=== PATIENT | female | born 1950 | race Caucasian/White ===

== ENCOUNTER → 2017-05-08 | Day surgery (SDC) | payer OTHER ==
[2017-03-22 11:44] VITALS: Ht 168.9 cm; Wt 88.6 kg
[~2017-05-08] VITALS: Ht 168.9 cm; Wt 88.6 kg
[~2017-05-08] MED LIST: 500ML BSS 0.3ML EPI 1:1000PF IRRIG ONE; ACETAMINOPHEN 325 MG TAB PO PRN; AMVISC PLUS 0.8ML SYRINGE INT OCU ONE; ATROPINE SULFATE 0.1 MG/ML 5ML SYR IV PRN; AcetaZOLAMIDE 250 MG TAB PO SCH; BETAXOLOL HCL 0.25% OP SUSP PER DROP CHARGE OPR SCH; BRIMONIDINE TART 0.2% OP SOLN PER DROP CHARGE ONE; BSS FLUSH ONE; CEPH-571 PO; CHOL20009 PO; COEN100C2 PO; CRS/10 PO; CYCLOPENTOLATE HCL 1% OP SOLN PER DROP CHARGE OPR SCH; ENDOCOAT 0.85ML SYRINGE INT OCU ONE; EpHEDrine SULFATE INJ 50 MG/ML AMP IV PRN; EpINEphrine INJ 1MG/ML AMP 1 MG/ML AMP ONE; KRIL1CAP3 PO; LACTATED RINGER'S 1000ML 500 ML IV SCH; LIDOCAINE 4% OP SOLN DROP CHARGE ONE; LIDOCAINE 4% OP SOLN DROP CHARGE OPR SCH; LIDOCAINE HCL 1% MPF 2 ML VIAL ONE; LORA-741 PO; LSN/10125 PO; MIDAZOLAM HCL 1 MG/ML 2ML VIAL ONE; MIX: 4ML BSS 1ML EPI 1:1000 PF INSTIL ONE; MOXIFLOXACIN OPH SOLN PER DROP CHARGE ONE; MOXIFLOXACIN OPH SOLN PER DROP CHARGE OPR SCH; OCUCOAT 1 ML SOLN IO ONE; PHENYLEPHRINE HCL 2.5% OP SOLN PER DROP CHARGE OPR SCH; POVIDONE-IODINE OP SOLN 30 ML BTL ONE; PRED1SUS OPR; PROPARACAINE 0.5% OP SOLN PER DROP CHARGE OPR SCH; SULF800T23 PO; TOBRAMYCIN/DEXAMETHASONE OPH OINT PER APPLN CHARGE ONE; TROPICAMIDE 1% OP SOLN PER DROP CHARGE OPR SCH; ZNT150 PO
--- NOTE | 2017-05-08 06:47 | History & Physical Bridge - SC ---
H&P Re-Evaluation Bridge Note: I have examined the patient, reviewed the History & Physical and in the interval since the performance of the History & Physical I have noted the following changes of clinical significance: No changes noted
[2017-05-08] MEDS: PHENYLEPHRINE HCL 2.5% OP SOLN PER DROP CHARGE OPR SCH ×2 (07:23→07:28)
[2017-05-08] MEDS: TROPICAMIDE 1% OP SOLN PER DROP CHARGE OPR SCH ×2 (07:24→07:29)
[2017-05-08] MEDS: CYCLOPENTOLATE HCL 1% OP SOLN PER DROP CHARGE OPR SCH ×2 (07:25→07:30)
[2017-05-08] MEDS: MOXIFLOXACIN OPH SOLN PER DROP CHARGE OPR SCH ×2 (07:26→07:36)
[2017-05-08 08:36] VITALS: TEMP 36.5
--- NOTE | 2017-05-08 08:37 | [facility] Post Operative Brief Note ---
Immediate Operative Summary Operative Date May 08, 2017. Pre-Operative Diagnosis Right eye cataract Post-Operative Diagnosis Same as preop Procedure(s) Performed Right Cataract Phacoemulsification With Intraocular Lens Implant; Symfony Lens Surgeon Dr. Isaacs Sql Ssrs Ssis Developer Surgeon(s) None Estimated Blood Loss 0 mL Findings Nuclear cataract Fluids (cc crystalloids) 300 ml Specimens None Drains none Anesthesia L/S Complication(s) None Disposition Recovery Room / PACU
--- NOTE | 2017-05-08 08:39 | [facility] Operative Report ---
Operative Report Date of Service May 08, 2017. Operative Report PREOPERATIVE DIAGNOSIS: Senile nuclear cataract right eye. POSTOPERATIVE DIAGNOSIS: Senile nuclear cataract right eye. PROCEDURE: Phacoemulsification of right cataract with posterior chamber lens implant, type Errol, model ZXR00, power + 21.00 Diopters. ANESTHESIA: Local standby. SURGEON: Dr. Isaacs. COMPLICATIONS: None. OPERATING TIME: 10 minutes. OPERATION AND FINDINGS: PROCEDURE: The right pupil was dilated. The anesthetic was administered using a topical technique. The right eye was prepped and draped. A speculum was placed. A clear corneal incision was formed. The chamber was filled with Amvisc Plus and endocoat. A paracentesis was placed. A capsulorrhexis was performed. The nucleus was hydrodissected. The lens was removed with phacoemulsification. Time was 2.98 seconds. The aspiration unit was used to remove the cortex. The capsule was filled with Amvisc Plus. The lens implant was folded and placed into the capsule. The incision was hydrated. The Amvisc was aspirated. The wound was secure. The chamber was deep. The pupil was round. Alphagan solution and TobraDex ointment and Zymar solution were placed. The speculum was removed. DISPOSITION: The patient was returned to the recovery room in stable condition I attest to the content of the Intraoperative Record and any orders documented therein. Any exceptions are noted below.
--- NOTE | 2017-05-08 08:41 | Discharge Instructions-SurgCtr ---
Discharge Instructions Date of Service May 08, 2017. Visit Reason for Visit: Cataract Right Eye Discharge Discharge Diagnosis / Problem: Pseudophakia right eye Discharge Goals Goal(s): Improve function Activity Recommendations Activity Limitations: per Instructions/Follow-up section Lifting Limitations: no more than 10 pounds Exercise/Sports Limitations: as tolerated May Resume Sexual Activity: when tolerated Shower/Bathe: tomorrow Driving or Machine Use: resume 1 day after discharge As noted Anesthesia . Post Anesthesia Instructions: If you have had General Anesthesia or IV Sedation: * Do not drive today. * Resume driving when surgeon permits. * Do not make important decisions or sign legal documents today. * Call surgeon for: 1. Temperature elevations greater than 101 degrees F. 2. Uncontrollable pain. 3. Excessive bleeding. 4. Persistent nausea and vomiting. 5. Medication intolerance (nausea, vomiting or rash). * For nausea and vomiting use only clear liquids such as: tea, soda, bouillon until nausea subsides, then gradually increase diet as tolerated. * If you have any concerns or questions, call your surgeon's office. If physician is unavailable and it is an emergency, call 911 or go to the nearest emergency room. . Instructions / Follow-Up Instructions / Follow-Up ACTIVITY RECOMMENDATIONS: * Light activities. * Mild irritation and blurred vision are common for the first few days. * You may walk outside, read, watch television. * Redness around the white part of the eye is common. MEDICATIONS: Resume previous medications unless instructed otherwise by your surgeon. * Take white Diamox (Acetazolamide) tablet at 1 pm today. Start all eye drops at 1 pm today: * Eye drops (today and tomorrow): Prednisone - one drop in operative eye every 3 hours while awake Ofloxacin - one drop in operative eye every 3 hours while awake SPECIAL CARE INSTRUCTIONS: * Tape plastic shield over eye to sleep at night. Call your doctor at with any concerns or problems. FOLLOW UP VISIT: Follow-up with Dr Isaacs at [place] office as scheduled. Diet Recommendations Home Diet: resume previous diet Procedures Procedures Performed: Right Cataract Phacoemulsification With Intraocular Lens Implant; Symfony Lens Pending Studies Studies pending at discharge: no Medical Emergencies . Who to Call and When: Medical Emergencies: If at any time you feel your situation is an emergency, please call 911 immediately. . Non-Emergent Contact Non-Emergency issues call your: Drying Unit Felting Machine Operator . . "Provider Documentation" section prepared by Ger Isaacs. .
--- NOTE | 2017-05-08 08:51 | Anesthesia Progress Nt - [facility] ---
Anesthesia Post Op Note Date & Time May 08, 2017 at 08:51 Vital Signs Pain Intensity: 0 Vital Signs Past 12 Hours Date Time Temp Pulse Resp B/P (MAP) Pulse Ox O2 Delivery O2 Flow Rate FiO2 05/08/17 08:36 36.5 71 16 118/71 (87) 99 Room Air 05/08/17 07:17 36.5 76 20 162/92 (115) 98 Room Air Notes Mental Status: alert / awake / arousable, participated in evaluation Pt Amnestic to Procedure: Yes Nausea / Vomiting: adequately controlled Pain: adequately controlled Airway Patency, RR, SpO2: stable & adequate BP & HR: stable & adequate Hydration State: stable & adequate Anesthetic Complications: no major complications apparent
[2017-05-08 08:52] VITALS: BP 108/67; PULSE 60; O2SAT 95
== END | disposition home or self-care (01) ==
LOC: X.SURG 06:46
PROVIDERS: ATTEND Specialist
DX: H25.11 Age-related nuclear cataract, right eye (principal); I10 Essential (primary) hypertension; E78.00 Pure hypercholesterolemia, unspecified; Z90.710 Acquired absence of both cervix and uterus; Z95.818 Presence of other cardiac implants and grafts; E66.9 Obesity, unspecified

== ENCOUNTER → 2017-05-22 | Day surgery (SDC) | payer OTHER ==
[2017-05-20 11:43] VITALS: Ht 168.9 cm; Wt 88.6 kg
[~2017-05-22] VITALS: Ht 168.9 cm; Wt 88.6 kg
[~2017-05-22] MED LIST changes: +BETAXOLOL HCL 0.25% OP SUSP PER DROP CHARGE OPL SCH; -BETAXOLOL HCL 0.25% OP SUSP PER DROP CHARGE OPR SCH; -CYCLOPENTOLATE HCL 1% OP SOLN PER DROP CHARGE OPR SCH; +LIDOCAINE 4% OP SOLN DROP CHARGE OPL SCH; -LIDOCAINE 4% OP SOLN DROP CHARGE OPR SCH; -MOXIFLOXACIN OPH SOLN PER DROP CHARGE OPR SCH; -PHENYLEPHRINE HCL 2.5% OP SOLN PER DROP CHARGE OPR SCH; +PROPARACAINE 0.5% OP SOLN PER DROP CHARGE OPL SCH; -PROPARACAINE 0.5% OP SOLN PER DROP CHARGE OPR SCH; -TROPICAMIDE 1% OP SOLN PER DROP CHARGE OPR SCH
[2017-05-22] MEDS: PHENYLEPHRINE HCL 2.5% OP SOLN PER DROP CHARGE OPL SCH ×2 (06:51→06:56)
[2017-05-22] MEDS: TROPICAMIDE 1% OP SOLN PER DROP CHARGE OPL SCH ×2 (06:52→06:57)
[2017-05-22] MEDS: CYCLOPENTOLATE HCL 1% OP SOLN PER DROP CHARGE OPL SCH ×2 (06:53→06:58)
[2017-05-22] MEDS: MOXIFLOXACIN OPH SOLN PER DROP CHARGE OPL SCH ×2 (06:54→07:04)
--- NOTE | 2017-05-22 07:53 | Discharge Instructions-SurgCtr ---
Discharge Instructions Date of Service May 22, 2017. Visit Reason for Visit: Cataract Left Eye Discharge Discharge Diagnosis / Problem: lens implant left eye Discharge Goals Goal(s): Improve function Activity Recommendations Activity Limitations: resume your previous activity Lifting Limitations: no more than 10 pounds Exercise/Sports Limitations: gradually increase as tolerated May Resume Sexual Activity: when tolerated Shower/Bathe: tomorrow Driving or Machine Use: resume 1 day after discharge Anesthesia . Post Anesthesia Instructions: If you have had General Anesthesia or IV Sedation: * Do not drive today. * Resume driving when surgeon permits. * Do not make important decisions or sign legal documents today. * Call surgeon for: 1. Temperature elevations greater than 101 degrees F. 2. Uncontrollable pain. 3. Excessive bleeding. 4. Persistent nausea and vomiting. 5. Medication intolerance (nausea, vomiting or rash). * For nausea and vomiting use only clear liquids such as: tea, soda, bouillon until nausea subsides, then gradually increase diet as tolerated. * If you have any concerns or questions, call your surgeon's office. If physician is unavailable and it is an emergency, call 911 or go to the nearest emergency room. . Instructions / Follow-Up Instructions / Follow-Up ACTIVITY RECOMMENDATIONS: * Light activities. * Mild irritation and blurred vision are common for the first few days. * You may walk outside, read, watch television. * Redness around the white part of the eye is common. MEDICATIONS: Resume previous medications unless instructed otherwise by your surgeon. * Take white Diamox (Acetazolamide) tablet at 1 pm today. Start all eye drops at 1 pm today: * Eye drops (today and tomorrow): Prednisone - one drop in operative eye every 3 hours while awake Ofloxacin - one drop in operative eye every 3 hours while awake SPECIAL CARE INSTRUCTIONS: * Tape plastic shield over eye to sleep at night. Call your doctor at with any concerns or problems. FOLLOW UP VISIT: Follow-up with Dr Isaacs at [place] office as scheduled. Diet Recommendations Home Diet: no limitations Procedures Procedures Performed: cataract extraction with lens implant Pending Studies Studies pending at discharge: no Medical Emergencies . Who to Call and When: Medical Emergencies: If at any time you feel your situation is an emergency, please call 911 immediately. . Non-Emergent Contact Non-Emergency issues call your: Control Systems Engineer Call Non-Emergent contact if: your pain is not controlled [phone] . . "Provider Documentation" section prepared by Ger Isaacs. .
--- NOTE | 2017-05-22 07:55 | [facility] Operative Report ---
Operative Report Date of Service May 22, 2017. Operative Report 1. PREOPERATIVE DIAGNOSIS: Senile nuclear cataract, left eye. 2. POSTOPERATIVE DIAGNOSIS: Senile nuclear cataract, left eye. 3. PROCEDURE: Phacoemulsification of left cataract with posterior chamber lens implant, type Technis, model ZXR00 Symfony, power +22.0 diopters. ANESTHESIA: Local standby. SURGEON: Dr. Isaacs. COMPLICATIONS: None. OPERATING TIME: 10 minutes. 4. OPERATION AND FINDINGS: DESCRIPTION OF PROCEDURE: The left pupil was dilated. The anesthetic was administered using a topical technique. The left eye was prepped and draped. A speculum was placed. A clear corneal incision was formed. The chamber was filled with Amvisc Plus and Endocoat. Epinephrine solution was used. A paracentesis was placed. A capsulorrhexis was performed. The nucleus was hydrodissected. The lens was removed with phacoemulsification. Time was 1.65 seconds. The aspiration unit was used to remove the cortex. The capsule was filled with Amvisc Plus. The lens implant was folded and placed into the capsule. Anastigmatic incision was placed across from the main incision. The incisions were hydrated. The Amvisc was aspirated. The wounds were secure. The chamber was deep. The pupil was round. Brimonidine, TobraDex ointment and Vigamox solution were placed. The speculum was removed. The patient was returned to the Recovery Room in stable condition. I attest to the content of the Intraoperative Record and any orders documented therein. Any exceptions are noted below. The scribe's documentation has been prepared in my presence, under my direction and personally reviewed by me in its entirety. I confirm that the note above accurately reflects all work, treatment, procedures, and medical decision making performed by me. I personally scribed for Ger Isaacs M.D. ([facility]) on 05/22/17 at 07:55. Electronically submitted by Patricia HARMON).
[2017-05-22 07:56] VITALS: TEMP 36.6
[2017-05-22 08:21] VITALS: BP 98/62; PULSE 61; O2SAT 97
--- NOTE | 2017-05-22 08:26 | Anesthesia Progress Nt - [facility] ---
Anesthesia Post Op Note Date & Time May 22, 2017 at 08:25 Vital Signs Pain Intensity: 0 Vital Signs Past 12 Hours Date Time Temp Pulse Resp B/P (MAP) Pulse Ox O2 Delivery O2 Flow Rate FiO2 05/22/17 08:21 61 16 98/62 (74) 97 Room Air 05/22/17 07:56 36.6 67 16 104/65 (78) 97 Room Air 05/22/17 06:39 36.9 79 16 144/85 (104) 97 Room Air Notes Mental Status: alert / awake / arousable, participated in evaluation Pt Amnestic to Procedure: Yes Nausea / Vomiting: adequately controlled Pain: adequately controlled Airway Patency, RR, SpO2: stable & adequate BP & HR: stable & adequate Hydration State: stable & adequate Anesthetic Complications: no major complications apparent
== END | disposition home or self-care (01) ==
LOC: X.SURG 06:25
PROVIDERS: ATTEND Specialist
DX: H25.12 Age-related nuclear cataract, left eye (principal); I10 Essential (primary) hypertension; E78.00 Pure hypercholesterolemia, unspecified; F41.9 Anxiety disorder, unspecified; F32.9 Major depressive disorder, single episode, unspecified; E78.5 Hyperlipidemia, unspecified; H40.9 Unspecified glaucoma

== ENCOUNTER → 2017-07-19 | Outpatient (CLI) | payer OTHER ==
[~2017-07-19] MED LIST changes: -500ML BSS 0.3ML EPI 1:1000PF IRRIG ONE; -ACETAMINOPHEN 325 MG TAB PO PRN; -AMVISC PLUS 0.8ML SYRINGE INT OCU ONE; -ATROPINE SULFATE 0.1 MG/ML 5ML SYR IV PRN; -AcetaZOLAMIDE 250 MG TAB PO SCH; -BETAXOLOL HCL 0.25% OP SUSP PER DROP CHARGE OPL SCH; -BRIMONIDINE TART 0.2% OP SOLN PER DROP CHARGE ONE; -BSS FLUSH ONE; -CEPH-571 PO; -ENDOCOAT 0.85ML SYRINGE INT OCU ONE; -EpHEDrine SULFATE INJ 50 MG/ML AMP IV PRN; -EpINEphrine INJ 1MG/ML AMP 1 MG/ML AMP ONE; -LACTATED RINGER'S 1000ML 500 ML IV SCH; -LIDOCAINE 4% OP SOLN DROP CHARGE ONE; -LIDOCAINE 4% OP SOLN DROP CHARGE OPL SCH; -LIDOCAINE HCL 1% MPF 2 ML VIAL ONE; -MIDAZOLAM HCL 1 MG/ML 2ML VIAL ONE; -MIX: 4ML BSS 1ML EPI 1:1000 PF INSTIL ONE; -MOXIFLOXACIN OPH SOLN PER DROP CHARGE ONE; -OCUCOAT 1 ML SOLN IO ONE; -POVIDONE-IODINE OP SOLN 30 ML BTL ONE; -PROPARACAINE 0.5% OP SOLN PER DROP CHARGE OPL SCH; -TOBRAMYCIN/DEXAMETHASONE OPH OINT PER APPLN CHARGE ONE; -ZNT150 PO
== END | disposition home or self-care (01) ==
LOC: C.LABSPEC 17:23
PROVIDERS: ATTEND Physician Assistant
DX: N89.8 Other specified noninflammatory disorders of vagina (principal)

== ENCOUNTER 2017-07-24 07:48 | Observation (INO) | payer OTHER ==
[~2017-07-24] VITALS: Ht 167.6 cm; Wt 84.7 kg
[~2017-07-24 07:48] MED LIST changes: -SULF800T23 PO
[2017-07-24] MEDS ORDERED: SULF800T23 PO (08:07)
[2017-07-24] MEDS ORDERED: SODIUM CHLORIDE 0.9% 1000ML 500 ML IV STA (08:16)
[2017-07-24] MEDS ORDERED: NITROGLYCERIN OINT 2% 1GM PACKET EXT STA (08:16)
--- NOTE | 2017-07-24 08:26 | EMERGENCY ROOM VISIT NOTE ---
History Report prepared by Gillian: Elizabeth Carrasquillo Under the Supervision of: Dr. Zen Torres M.D. First contact with patient: 08:10 Chief Complaint: CARDIAC ASSESSMENT Stated Complaint: BURNING ALL OVER IN CHEST Nursing Triage Summary: pt reports she started having chest gurgling last night after taking bactrim for staff infection in groin area has been having pain in area since february .recommended to go for gyne visit by pain management. has feeling of burning soap. wanted pt to take tetracycline but med cost too much changed to bactrim. denies any n/v/sob. pt has testing done on saturday called yesterday with results. History of Present Illness The patient is a 66 year old female who presents to the Emergency Room with complaints of chest pain that has slightly resolved that began around 0200 this morning. She currently rates her discomfort as a 3/10 in severity, but notes that last evening it was up to an 8/10 in severity. The patient states that around 0200 she was woken out of sleep with a burning pain to her chest. She states that she felt fine going to bed last evening. The patient reports a history of heart burn, but states that her pain today was more severe. She denies any pain radiating into her jaw, back, neck or arm. The patient states that she felt warm when the pain began, but denies any diaphoresis, shortness of breath, or nausea. She states that she has been feeling fatigued recently. The patient states that she took 81 mg of aspirin this morning. The patient denies any history of heart disease. She does report feeling out of breath with quick walking. The patient does report that over the summer she developed pain in her sacroiliac joint. She states that she followed with a doctor who then referred her to pain management. The patient states that she had two shots at pain management and was then referred to the security developer due to pain she developed in her vaginal area. She states that she had a CT performed of her abdomen and pelvis--no concerning findings. The patient states that she had a culture taken from her vagina and states that she was found to have a Staph infection. She states that she was prescribed Bactrim yesterday, but states that she only took 1 yesterday. The patient states that she has had slight relief of her vaginal pain, but still reports vaginal pain today. Source of History: patient Onset: 0200 this morning Position: chest Symptom Intensity: 310 Quality: burning Timing: resolved (resolving) Associated Symptoms: No diaphoresis, No SOB, No nausea Review of Systems See HPI for pertinent positives & negatives. A total of 10 systems reviewed and were otherwise negative. Past Medical & Surgical Medical Problems: (1) Anxiety (2) Hyperlipidemia (3) Hypertension (4) Sacroiliac dysfunction Surgical Problems: (1) History of bowel resection (2) Previous back surgery Family History Cancer Hypertension Social History Smoking Status: Never Smoker Smokeless Tobacco Use: No Alcohol Use: none Marital Status: Housing Status: lives with significant other Occupation Status: employed Current/Historical Medications Scheduled Cholecalciferol (Vitamin D), 1 TAB PO QAM Coenzyme Q10 (Ubidecarenone) (Coenzyme Q-10), 1 CAP PO HS Hctz/Lisinopril (Lisinopril/Hctz 10/12.5 Mg), 1 TAB PO QAM Krill Oil (Krill Oil), 1 CAP PO QAM Rosuvastatin Calcium (Crestor), 10 MG PO HS Sulfa/Trimethoprim (Bactrim Ds 800MG/160MG), 1 TAB PO BID Scheduled PRN Lorazepam (Ativan), 0.25-0.5 TAB PO TID PRN for Anxiety Allergies Coded Allergies: NO KNOWN DRUG ALLERGIES (Verified Allergy, Unknown, ., 07/24/17) Adhesives (Verified Adverse Reaction, Unknown, REDNESS AND INFLAMMATION, 07/24/17) Physical Exam Vital Signs Date Time Temp Pulse Resp B/P (MAP) Pulse Ox O2 Delivery O2 Flow Rate FiO2 07/24/17 09:45 77 20 164/85 96 Room Air 07/24/17 08:05 90 07/24/17 08:01 97 Room Air 07/24/17 07:57 37.0 97 20 198/98 100 Room Air Physical Exam GENERAL: Patient is in no acute distress. HEENT: No acute trauma, normocephalic atraumatic, mucous membranes moist, no nasal congestion, no scleral icterus. NECK: No stridor, no adenopathy, no meningismus, trachea is midline. CHEST: Mildly tender over mid-left sternum. LUNGS: Clear to auscultation bilaterally, no wheeze, no rhonchi, breath sounds equal. HEART: Without murmurs gallops or rubs, regular rate and rhythm. ABDOMEN: Soft, nontender, bowel sounds positive, no hernias, no peritonitis. EXTREMITIES: No cyanosis or edema, full range of motion of all the joints without pain or difficulty, no signs for acute trauma. NEUROLOGIC: Oriented x 3, no acute motor or sensory deficits, no focal weakness. SKIN: No rash, no jaundice, no diaphoresis. Medical Decision & Procedures ER Provider Diagnostic Interpretation: X-ray results as stated below per interpretation by me and the radiologist: CHEST ONE VIEW PORTABLE CLINICAL HISTORY: Chest pain. Burning sensation in chest. COMPARISON STUDY: No previous studies for comparison. FINDINGS: Lung volumes are normal. No pneumothorax or pleural effusion is present. Pulmonary vascularity is normal. Cardiomediastinal silhouette is normal. There is no consolidation. IMPRESSION: No acute cardiopulmonary findings. Electronically signed by: Joseph Wilkins M.D. 07/24/2017 8:35 AM Dictated Date/Time: 07/24/2017 8:31 AM Laboratory Results 07/24/17 08:11 07/24/17 08:11 Test 07/24/17 08:11 07/24/17 08:40 Red Blood Count 4.94 M/uL (4.2-5.4) Mean Corpuscular Volume 88.9 fL (80-100) Mean Corpuscular Hemoglobin 30.8 pg (25-34) Mean Corpuscular Hemoglobin Concent 34.6 g/dl (32-36) RDW Standard Deviation 43.2 fL (36.4-46.3) RDW Coefficient of Variation 13.3 % (11.5-14.5) Mean Platelet Volume 9.6 fL (7.4-10.4) Prothrombin Time 10.8 SECONDS (9.0-12.0) Prothromb Time International Ratio 1.0 (0.9-1.1) Activated Partial Thromboplast Time 28.5 SECONDS (21.0-31.0) Partial Thromboplastin Ratio 1.1 Anion Gap 9.0 mmol/L (3-11) Est Creatinine Clear Calc Drug Dose 54.6 ml/min Estimated GFR () 59.7 Estimated GFR (Non- 51.5 BUN/Creatinine Ratio 14.4 (10-20) Calcium Level 9.4 mg/dl (8.5-10.1) Total Bilirubin 0.7 mg/dl (0.2-1) Aspartate Amino Transf (AST/SGOT) 20 U/L (15-37) Alanine Aminotransferase (ALT/SGPT) 26 U/L (12-78) Alkaline Phosphatase 41 U/L (45-117) Total Creatine Kinase 186 U/L (26-192) Creatine Kinase MB 3.0 ng/ml (0.5-3.6) Creatine Kinase MB Ratio 1.6 (0-3.0) Total Protein 7.4 gm/dl (6.4-8.2) Albumin 3.9 gm/dl (3.4-5.0) Globulin 3.5 gm/dl (2.5-4.0) Albumin/Globulin Ratio 1.1 (0.9-2) Lipase 131 U/L (73-393) Urine Color YELLOW Urine Appearance CLEAR (CLEAR) Urine pH 5.5 (4.5-7.5) Urine Specific [place] 1.020 (1.000-1.030) Urine Protein NEG (NEG) Urine Glucose (UA) NEG (NEG) Urine Ketones NEG (NEG) Urine Occult Blood NEG (NEG) Urine Nitrite NEG (NEG) Urine Bilirubin NEG (NEG) Urine Urobilinogen NEG (NEG) Urine Leukocyte Esterase NEG (NEG) Laboratory results reviewed by me. Medications Administered Medications (Trade) Dose Ordered Sig/Nury Route Start Time Stop Time Status Last Admin Dose Admin Sodium Chloride 500 ml @ 999 mls/hr Q31M STAT IV 07/24/17 08:16 07/24/17 08:46 DC 07/24/17 08:29 999 MLS/HR Nitroglycerin (Nitroglycerin 2% Oint) 1 inch NOW STAT EXT 07/24/17 08:16 07/24/17 08:21 DC 07/24/17 08:29 1 INCH Ceftriaxone Sodium (Rocephin Inj) 1 gm NOW STAT IV 07/24/17 09:27 07/24/17 09:28 DC 07/24/17 09:46 1 GM ECG Indication: chest pain Rate (beats per minute): 89 Rhythm: normal sinus Findings: no acute ischemic change, no ectopy ED Course 0815: The patient was evaluated in room A3. A complete history and physical exam was performed. 0816: Ordered Nitroglycerin 1 inch EXT, Sodium Chloride 500 ml @ 999 mls/hr IV. 0925: I reevaluated the patient and she is resting comfortably. I discussed the exam findings with her and I discussed the treatment plan. She verbalized complete understanding and agreement. She will be evaluated for further treatment. 926: Ordered Rocephin Inj 1 gm IV. 933: I discussed the patients case with BLANCA Bird. He is going to evaluate the patient for further treatment. Medical Decision The patient is a 66 year old female who presents to the ED with complaints of chest pain. Differential diagnoses considered include cardiac ischemia, angina , AK, reflux, gallbladder disease, pancreatitis, medication reaction, electrolyte imbalance, anemia. There is no leukocytosis or concerning anemia. No significant electrolyte abnormalities, kidney failure, hepatitis or pancreatitis. Chest x-ray does not show mediastinal widening, pneumonia or pneumothorax. EKG shows a normal sinus rhythm, no acute ischemia. Cardiac enzyme testing times one does not suggest acute cardiac injury. Urinalysis does not show infection. There is no coagulopathy. The patient has had improvement of her pain spontaneously. She was given nitroglycerin paste, she feels even better since the nitro application. She received IV saline. No additional aspirin was given as she had taken aspirin prior to arrival. She was given IV ceftriaxone to cover for the potential staph infection noted on her vaginal culture. Given the chest pain, I do think further care in the hospital is warranted. A cardiac workup is needed. I talked to the patient and the child support case officer. The on- call hospitalist was consulted. Medication Reconcilliation Current Medication List: was personally reviewed by me Blood Pressure Screening Patient's blood pressure: Elevated blood pressure Blood pressure disposition: Referred to PCP Consults Time Called: [phone] Consulting Physician: BLANCA Bird Returned Call: [phone] I discussed the patients case with BLANCA Bird. He is going to evaluate the patient for further treatment. Impression Primary Impression: Precordial chest pain Scribe Attestation The scribe's documentation has been prepared under my direction and personally reviewed by me in its entirety. I confirm that the note above accurately reflects all work, treatment, procedures, and medical decision making performed by me. Departure Information Dispostion Being Evaluated By Hospitalist Referrals Cara Bynum (PCP)
--- NOTE | 2017-07-24 08:36 | DIAGNOSTIC IMAGING REPORT ---
CHEST ONE VIEW PORTABLE CLINICAL HISTORY: Chest pain. Burning sensation in chest. COMPARISON STUDY: No previous studies for comparison. FINDINGS: Lung volumes are normal. No pneumothorax or pleural effusion is present. Pulmonary vascularity is normal. Cardiomediastinal silhouette is normal. There is no consolidation. IMPRESSION: No acute cardiopulmonary findings. Electronically signed by: Joseph Wilkins M.D. 07/24/2017 8:35 AM Dictated Date/Time: 07/24/2017 8:31 AM
[2017-07-24 08:48] LABS: HEMATOCRIT 43.9 % (37-47); MEAN CELL VOLUME 88.9 fL (80-100); MEAN CORPUSCULAR HEMOGLOBIN 30.8 pg (25-34); MEAN CORPUSCULAR HGB CONC 34.6 g/dl (32-36); MEAN PLATELET VOLUME 9.6 fL (7.4-10.4); PLATELET COUNT 227 K/uL (130-400); RED BLOOD COUNT 4.94 M/uL (4.2-5.4); WHITE BLOOD COUNT 8.88 K/uL (4.8-10.8)
[2017-07-24 08:53] LABS: PARTIAL THROMBOPLASTIN RATIO 1.1; PROTHROMBIN TIME (PATIENT) 10.8 SECONDS (9.0-12.0)
[2017-07-24 08:57] LABS: ALT/SGPT 26 U/L (12-78); AST/SGOT 20 U/L (15-37); BLOOD UREA NITROGEN 16 mg/dl (7-18); BUN/CREATININE RATIO 14.4 (10-20); CALCIUM 9.4 mg/dl (8.5-10.1); CARBON DIOXIDE 23 mmol/L (21-32); CHLORIDE 104 mmol/L (98-107); GLUCOSE 106 mg/dl (70-99); POTASSIUM 3.9 mmol/L (3.5-5.1); SODIUM 136 mmol/L (136-145)
[2017-07-24 09:01] LABS: MANUAL MICROSCOPIC REQUIRED? NO; REVIEW REQ? NO; URINE APPEARANCE CLEAR (CLEAR); URINE BILIRUBIN NEG (NEG); URINE COLOR YELLOW; URINE NITRITE NEG (NEG); URINE PH 5.5 (4.5-7.5); UROBILINOGEN NEG (NEG)
[2017-07-24 09:02] LABS: ALB/GLOB RATIO 1.1 (0.9-2); ALKALINE PHOSPHATASE 41 U/L (45-117); CKMB/CK RATIO 1.6 (0-3.0)
[2017-07-24] MEDS ORDERED: CEFTRIAXONE SOD INJ 1 GM ADDVIAL IV STA (09:27)
[2017-07-24] MEDS ORDERED: NITROGLYCERIN 0.4 MG SL PER TAB CHARGE SL PRN (10:15)
[2017-07-24] MEDS ORDERED: ACETAMINOPHEN 325 MG TAB PO PRN (10:15)
[2017-07-24] MEDS ORDERED: LORAZEPAM 0.5 MG TAB PO PRN (10:15)
[2017-07-24 10:25] VITALS: O2SAT 96; Ht 167.6 cm; Wt 84.7 kg
--- NOTE | 2017-07-24 10:54 | History and Physical ---
History & Physical Date & Time of Service: Jul 24, 2017 at 10:21 Chief Complaint: Burning All Over In Chest Primary Care Physician: Cara Bynum History of Present Illness Source: patient Patient is a 66-year-old female with a significant past medical history of hypertension, hyperlipidemia, and anxiety who presented to the emergency Department this morning complaining of LEFT-sided chest pain that awoke her from sleep at approximately 2 AM. She describes the initial pain as "burning" and constant without radiation. Her pain was rated an 8/10 at the most intense. In route to the emergency department, she reports that her symptoms did "let up" slightly. She received topical nitroglycerin upon arrival and approximately 15 minutes later the patient reports complete resolve of symptoms. Her EKG was found be unremarkable. Initial troponin was negative. Patient resting comfortably at this time and not complaining of pain rating her discomfort a 0/10. The patient does report a history of hypertension for which she is treated with lisinopril for the past several years. In addition, she is taking 10 mg Crestor for high cholesterol. She does report a history of a cardiac catheterization that was performed at [facility] approximately 10 years ago which was felt to be unremarkable. There was never any other intervention. She has not had subsequent stress tests or echocardiograms performed since. She does admit to having yearly EKGs which have been felt to be unremarkable for the last several years. The patient has not experienced similar chest pain in the recent past. She denies any exertional chest pain symptoms. She does report some discomfort of the pain with movement. She denies any shortness of breath, cough or nausea, or radiation to the jaw or arm. She denies any dyspepsia, but she does report "gurgling" in her stomach as the pain started. After the pain started, she does admit to a tingling sensation to the bilateral upper extremities as well as lower extremities. She denies any slurred speech, facial droop, unilateral weakness/numbness, or headaches. Most recently, the patient is been treated for sacroiliitis to the LEFT-sided hip. She has dealt with pain for the entire summer. She was seen at her prior surgeon who had performed a lumbar laminectomy at L1 through 4 2000. He sent her to pain management. She had 2 subsequent injections which provided minimal relief of symptoms. During these episodes, the patient had continued complaints of pain in the vaginal area. 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 She had a pelvic exam performed which cultures tested positive for strep. She was initially provided a prescription for azithromycin , but was unable to purchase the medication. Instead, the patient started Bactrim last night. She does not remember having this medication in the past. She took the pill at approximately 6 PM without issue. She does feel as though her mother may have had an allergy to Bactrim. Patient reports a family history significant for maternal CVA at 90 years old. Her father does have a long-standing history of hypertension. Patient denies a smoking history. She socially drinks. She lives at home with her . Past Medical/Surgical History Hypertension Hyperlipidemia Anxiety Sacroiliitis History of bowel resection in 2006 secondary to abscess (unknown larger/small intestine) L1-4 laminectomy with discectomy in 2000. Hysterectomy Family History Cancer Hypertension Social History Smoking Status: Never Smoker Smokeless Tobacco Use: No Alcohol Use: socially Drug Use: none Marital Status: Housing status: lives with family Occupational Status: employed, retired Immunizations History of Influenza Vaccine: Unknown History of Tetanus Vaccine?: Unknown History of Pneumococcal: Unknown History of Hepatitis B Vaccine: Unknown Multi-Drug Resistant Organisms History of MDRO: No Allergies Coded Allergies: NO KNOWN DRUG ALLERGIES (Verified Allergy, Unknown, ., 07/24/17) Adhesives (Verified Adverse Reaction, Unknown, REDNESS AND INFLAMMATION, 07/24/17) Home Medications Scheduled Cholecalciferol (Vitamin D), 1 TAB PO QAM Coenzyme Q10 (Ubidecarenone) (Coenzyme Q-10), 1 CAP PO HS Hctz/Lisinopril (Lisinopril/Hctz 10/12.5 Mg), 1 TAB PO QAM Krill Oil (Krill Oil), 1 CAP PO QAM Rosuvastatin Calcium (Crestor), 10 MG PO HS Sulfa/Trimethoprim (Bactrim Ds 800MG/160MG), 1 TAB PO BID Scheduled PRN Lorazepam (Ativan), 0.25-0.5 TAB PO TID PRN for Anxiety Review of Systems A complete 10-point Review of Systems was discussed with the patient, with pertinent positives and negatives listed in the History of Present Illness. All remaining Review of Systems questions can be considered negative unless otherwise specified. Physical Exam Vital Signs Date Time Temp Pulse Resp B/P (MAP) Pulse Ox O2 Delivery O2 Flow Rate FiO2 07/24/17 09:45 77 20 164/85 96 Room Air 07/24/17 08:05 90 07/24/17 08:01 97 Room Air 07/24/17 07:57 37.0 97 20 198/98 100 Room Air VITAL SIGNS - Vital signs and nursing notes were reviewed. GENERAL - 66-year-old female appearing her stated age who is in no acute distress. Communicates well with provider and answers questions appropriately. HEAD - NC/AT. EYES - PERRL with EOMI bilaterally. Sclera anicteric. Palpebral conjunctiva pink and moist with no injection noted. EARS - No deformities of external structures noted on gross examination bilaterally. No pain elicited with palpation of the tragus bilaterally. External auditory canals without discharge or otorrhea. Tympanic membranes pearly schroeder without retraction or bulging. NOSE - Midline and without cyanosis. No epistaxis or purulent drainage noted. Septum midline without deviation or septal hematoma noted. MOUTH/OROPHARYNX - Without perioral cyanosis. Buccal mucosa pink and moist and without leukoplakia. Tongue midline with equal elevation of palate bilaterally. No tonsillar hypertrophy, erythema, or exudates noted. NECK - Neck with FROM. Supple to palpation. Normal vesicular breath sounds CTA B /L. No wheezes, rales, or rhonchi appreciated. CARDIAC - RRR with S1/S2. No murmur, rubs, or gallops appreciated. Mild reproducible tenderness to palpation appreciated over the LEFT sided anterior chest wall. ABDOMEN - Abdominal contour flat and without pulsations or visible masses. BS normoactive all four quadrants. No tenderness, palpable masses, hepatosplenomegaly, or ascites noted. EXTREMITIES - No clubbing or peripheral cyanosis. No pretibial edema present. +3 /5 radial and dorsalis pedis pulses palpated throughout. +5/5 strength noted in UE/LE bilaterally. NEUROLOGIC - Cranial nerves II through XII grossly intact. Sensory intact to light touch throughout. PSYCH - A&Ox3 and cooperates fully with examiner. Pt is very pleasant and interacts well with examiner. Diagnostics Laboratory Results Results Past 24 Hours Test 07/24/17 08:11 07/24/17 08:40 Range/Units White Blood Count 8.88 4.8-10.8 K/uL Red Blood Count 4.94 4.2-5.4 M/uL Hemoglobin 15.2 12.0-16.0 g/dL Hematocrit 43.9 37-47 % Mean Corpuscular Volume 88.9 80-100 fL Mean Corpuscular Hemoglobin 30.8 25-34 pg Mean Corpuscular Hemoglobin Concent 34.6 32-36 g/dl RDW Standard Deviation 43.2 36.4-46.3 fL RDW Coefficient of Variation 13.3 11.5-14.5 % Platelet Count 227 130-400 K/uL Mean Platelet Volume 9.6 7.4-10.4 fL Prothrombin Time 10.8 9.0-12.0 SECONDS Prothromb Time International Ratio 1.0 0.9-1.1 Activated Partial Thromboplast Time 28.5 21.0-31.0 SECONDS Partial Thromboplastin Ratio 1.1 Sodium Level 136 136-145 mmol/L Potassium Level 3.9 3.5-5.1 mmol/L Chloride Level 104 98-107 mmol/L Carbon Dioxide Level 23 21-32 mmol/L Anion Gap 9.0 3-11 mmol/L Blood Urea Nitrogen 16 7-18 mg/dl Creatinine 1.10 0.60-1.20 mg/dl Est Creatinine Clear Calc Drug Dose 54.6 ml/min Estimated GFR () 59.7 Estimated GFR (Non- 51.5 BUN/Creatinine Ratio 14.4 10-20 Random Glucose 106 70-99 mg/dl Calcium Level 9.4 8.5-10.1 mg/dl Total Bilirubin 0.7 0.2-1 mg/dl Aspartate Amino Transf (AST/SGOT) 20 15-37 U/L Alanine Aminotransferase (ALT/SGPT) 26 12-78 U/L Alkaline Phosphatase 41 45-117 U/L Total Creatine Kinase 186 26-192 U/L Creatine Kinase MB 3.0 0.5-3.6 ng/ml Creatine Kinase MB Ratio 1.6 0-3.0 Troponin I < 0.015 0-0.045 ng/ml Total Protein 7.4 6.4-8.2 gm/dl Albumin 3.9 3.4-5.0 gm/dl Globulin 3.5 2.5-4.0 gm/dl Albumin/Globulin Ratio 1.1 0.9-2 Lipase 131 73-393 U/L Urine Color YELLOW Urine Appearance CLEAR CLEAR Urine pH 5.5 4.5-7.5 Urine Specific Gilby 1.020 1.000-1.030 Urine Protein NEG NEG Urine Glucose (UA) NEG NEG Urine Ketones NEG NEG Urine Occult Blood NEG NEG Urine Nitrite NEG NEG Urine Bilirubin NEG NEG Urine Urobilinogen NEG NEG Urine Leukocyte Esterase NEG NEG Diagnostic Radiology Radiological imaging and reports were reviewed by myself. Radiologist's Interpretation as follows: CHEST ONE VIEW PORTABLE CLINICAL HISTORY: Chest pain. Burning sensation in chest. COMPARISON STUDY: No previous studies for comparison. FINDINGS: Lung volumes are normal. No pneumothorax or pleural effusion is present. Pulmonary vascularity is normal. Cardiomediastinal silhouette is normal. There is no consolidation. IMPRESSION: No acute cardiopulmonary findings. EKG Vent. rate 89 BPM OK interval 130 ms QRS duration 92 ms QT/QTc 370/450 ms P-R-T axes 36 42 56 Normal sinus rhythm Normal ECG No previous ECGs available Impression Assessment and Plan (1) Hyperlipidemia (2) Anxiety (3) Sacroiliac dysfunction (4) Vaginal infection (5) Precordial chest pain (6) Hypertension 66-year-old female with abrupt onset of LEFT-sided chest discomfort. Resolved with topical nitroglycerin in the emergency department. History of hypertension , hyperlipidemia, and prior cath approximate 10 years ago. Has had no further cardiac evaluation. Will be admitted to telemetry for observation status for chest pain rule out. PRECORDIAL CHEST PAIN: * Atypical with reproducible factor to the LEFT-sided anterior chest wall. Suspect a component of anxiety as well with reported carpopedal spasm after initial episode of chest pain. * Will trend troponins every 8 hours. * Will obtain a stress echocardiogram after serial troponins. * Monitor on telemetry. * EKGs with chest pain. * Daily EKG. HYPERTENSION: * Currently on lisinopril - continue home dose at this point. * Will monitor serial blood pressures while admitted. * Additional antihypertensives if necessary. HYPERLIPIDEMIA: * Continue current home Crestor dose. * Will check fasting Lipid Panel tomorrow AM. * Adjustments as needed. ANXIETY: * Ativan PRN anxiety. SACROILIAC DYSFUNCTION: * Tylenol/Toradol for complaints of pain. * Currently receiving injections per outside facility pain management. VAGINAL INFECTION (STAPH): * Will treat with daily Rocephin dose. * Hold Bactrim in the setting of chest pain symptoms after Bactrim use with family history (mother) of Bactrim intolerance. DVT PROPHYLAXIS: * Lovenox 40 mg sq daily. * SCDs. * Ambulation as tolerated. Level of Care Telemetry Advanced Directives Existing Advance Directive: No Resuscitation Status FULL RESUSCITATION VTE Prophylaxis VTE Risk Assessment Done? Y/N: Yes Risk Level: Low Given or contraindicated: Enoxaparin (Lovenox)SQ Social Service Consult None Apply
[2017-07-24] MEDS ORDERED: KETOROLAC TROMETHAMINE 15 MG/ML VIAL IV. PRN (11:00)
[2017-07-24] MEDS ORDERED: IV FLUIDS COMPLETED PRN (11:15)
[2017-07-24 11:30] VITALS: BP 162/80; PULSE 84; TEMP 36.7; O2SAT 99
[2017-07-24 15:41] VITALS: BP 145/82; PULSE 71; TEMP 36.8; O2SAT 97
[2017-07-24] MEDS: RANITIDINE HCL 150 MG TAB PO SCH (20:30)
[2017-07-24] MEDS ORDERED: ROSUVASTATIN CALCIUM 10 MG TAB PO SCH (21:00)
[2017-07-24] MEDS ORDERED: ENOXAPARIN 40 MG/0.4 ML SYR SC SCH (21:00)
[2017-07-24 21:12] VITALS: BP 136/77; PULSE 71; TEMP 36.7; O2SAT 97
[2017-07-25] VITALS (7 sets, daily range): BP systolic 119–145; BP diastolic 72–84; PULSE 65–85; TEMP 36.5–36.8; O2SAT 91–99
[2017-07-25 06:09] LABS: BASO % 0.4 %; BASO ABS # 0.03 K/uL (0-0.2); COMPLETE YES; EOS % 3.4 %; HEMATOCRIT 45.1 % (37-47); IG% 0.1 %; LYMPH % 16.3 %; LYMPH ABS # 1.11 K/uL (1.2-3.4); MEAN CELL VOLUME 90.6 fL (80-100); MEAN CORPUSCULAR HEMOGLOBIN 28.9 pg (25-34); MEAN CORPUSCULAR HGB CONC 31.9 g/dl (32-36); MEAN PLATELET VOLUME 9.3 fL (7.4-10.4); MONO % 9.7 %; NEUT % 70.1 %; PLATELET COUNT 206 K/uL (130-400); RED BLOOD COUNT 4.98 M/uL (4.2-5.4); WHITE BLOOD COUNT 6.81 K/uL (4.8-10.8)
[2017-07-25 06:39] LABS: CALCIUM 8.7 mg/dl (8.5-10.1); CREATININE 0.91 mg/dl (0.60-1.20); POTASSIUM 4.2 mmol/L (3.5-5.1)
[2017-07-25 06:44] LABS: ALB/GLOB RATIO 1.2 (0.9-2); CHOLESTEROL/HDL RATIO 2.8; CKMB/CK RATIO 1.5 (0-3.0)
[2017-07-25] MEDS: RANITIDINE HCL 150 MG TAB PO SCH (07:57)
[2017-07-25] MEDS ORDERED: LISINOPRIL/HCTZ 10/12.5MG TAB PO SCH (09:00)
[2017-07-25] MEDS ORDERED: ASPIRIN 81 MG ECTAB PO SCH (09:00)
[2017-07-25] MEDS ORDERED: CEFTRIAXONE SOD INJ 1 GM ADDVIAL IV SCH (10:00)
[2017-07-25] MEDS ORDERED: CEFTRIAXONE SOD INJ 1000 MG in DEXTROSE 5% 50ML IV SCH (10:00)
[2017-07-25] MEDS ORDERED: CEPH-571 PO (10:45)
[2017-07-25] MEDS ORDERED: ZNT150 PO (10:45)
--- NOTE | 2017-07-25 10:48 | Discharge Instructions ---
Discharge Instructions Date of Service Jul 25, 2017. Admission Reason for Admission: Precordial Chest Pain Discharge Discharge Diagnosis / Problem: Chest pain rule out ACS Discharge Goals Goal(s): Decrease discomfort, Improve function, Increase independence, Improve disease control, Learn about illness, Diagnostic testing, Therapeutic intervention, Specific goals Activity Recommendations Activity Limitations: resume your previous activity Exercise/Sports Limitations: as tolerated . Instructions / Follow-Up Instructions / Follow-Up Patient to be discharged home Will place on antibiotic keflex 500 mg by mouth twice a day for 7 days for urinary infection Please stop taking bactrim Will also provide prescription for zantac 150 mg by mouth twice a day for acid reflux If worsening chest pain, shortness of breath, numbness please report to ER Current Hospital Diet Patient's current hospital diet: AHA Diet (Heart Healthy) Discharge Diet Recommended Diet: AHA Diet (Heart Healthy) Pending Studies Studies pending at discharge: no Laboratory Results Lipid Panel Test 07/25/17 05:55 Range/Units Triglycerides Level 106 0-150 mg/dl Cholesterol Level 149 0-200 mg/dl HDL Cholesterol 53 mg/dl Cholesterol/HDL Ratio 2.8 LDL Cholesterol, Calculated 75 mg/dl Medical Emergencies . Who to Call and When: Medical Emergencies: If at any time you feel your situation is an emergency, please call 911 immediately. . Non-Emergent Contact Non-Emergency issues call your: Primary Care Provider Call Non-Emergent contact if: you have a fever, you have any medication questions . . "Provider Documentation" section prepared by Galdino Duran. . VTE Core Measure Inpt VTE Proph given/why not?: Enoxaparin (Lovenox)SQ
--- NOTE | 2017-07-25 13:11 | Discharge Summary ---
Discharge Summary Date of Service Jul 25, 2017. Discharge Summary Admission Date: Jul 24, 2017 at 10:21 Discharge Date: Jul 25, 2017 Discharge Disposition: Home Principal Diagnosis: Chest pain rule out Problems/Secondary Diagnoses: (1) Anxiety Status: Chronic (2) Hyperlipidemia Status: Chronic (3) Hypertension Status: Chronic (4) Sacroiliac dysfunction Status: Chronic Immunizations: Have You Had Influenza Vaccine: Unknown History of Tetanus Vaccine?: Unknown History of Pneumococcal: Unknown History of Hepatitis B Vaccine: Unknown Medication Reconciliation New Medications: Cephalexin (Keflex) 500 Mg Cap 1 CAP PO BID for 7 Days, #14 CAP Ranitidine HCl (Ranitidine HCl) 150 Mg Tab 150 MG PO BID for 30 Days, #60 TAB Continued Medications: Cholecalciferol (Vitamin D) 2,000 Unit Tab 1 TAB PO QAM Coenzyme Q10 (Ubidecarenone) (Coenzyme Q-10) 100 Mg Cap 1 CAP PO HS Hctz/Lisinopril (Lisinopril/Hctz 10/12.5 Mg) 1 Ea Tab 1 TAB PO QAM Krill Oil (Krill Oil) 1 Cap Cap 1 CAP PO QAM Lorazepam (Ativan) 0.5 Mg Tab 0.25-0.5 TAB PO TID PRN for Anxiety Rosuvastatin Calcium (Crestor) 10 Mg Tab 10 MG PO HS Discontinued Medications: Sulfa/Trimethoprim (Bactrim Ds 800MG/160MG) Tab 1 TAB PO BID, #6 TAB Discharge Exam Review of Systems: Constitutional: No fever, No chills, No sweats, No weight loss, No weakness ENT: No hearing loss, No unusual epistaxis, No nasal symptoms, No sore throat Respiratory: No cough, No sputum, No wheezing, No shortness of breath, No dyspnea on exertion Cardiovascular: No chest pain, No orthopnea, No PND, No edema Abdomen: No pain, No nausea, No vomiting, No diarrhea Musculoskeletal: No joint pain, No muscle pain, No swelling, No calf pain Genitourinary - Female: No dysuria, No urinary frequency, No urinary urgency , No urinary incontinence Neurologic: No memory loss, No paralysis, No weakness, No numbness/tingling Psychiatric: No depression symptoms, No anhedonism, No anxiety, No insomnia Endocrine: No fatigue, No excessive thirst Integumentary: No rash, No itch Physical Exam: General Appearance: WD/WN, no apparent distress Eyes: normal inspection, PERRL, EOMI, sclerae normal Neck: supple, no adenopathy, thyroid normal, no JVD Respiratory/Chest: chest non-tender, lungs clear, normal breath sounds, no respiratory distress Cardiovascular: regular rate, rhythm, no edema, no gallop, no JVD Abdomen / GI: normal bowel sounds, non tender, soft, no organomegaly Neurologic/Psychiatric: alert, normal mood/affect, normal reflexes, oriented x 3 Skin: normal color, warm/dry, no rash Lymphatic: no adenopathy Hospital Course 66-year-old female with abrupt onset of LEFT-sided chest discomfort. Resolved with topical nitroglycerin in the emergency department. History of hypertension , hyperlipidemia, and prior cath approximate 10 years ago. Has had no further cardiac evaluation. Will be admitted to telemetry for observation status for chest pain rule out. PRECORDIAL CHEST PAIN: * Atypical with reproducible factor to the LEFT-sided anterior chest wall. Suspect a component of anxiety as well with reported carpopedal spasm after initial episode of chest pain. * Troponins x 3 sets neg * EKG NSR * Monitored on telemetry, no arrythmias noted * Likely related to reflux, improved with ranitidine 150 mg PO BID HYPERTENSION: * Stable, currently on lisinopril - continue home dose at this point. HYPERLIPIDEMIA: * Continue current home Crestor dose. * Lipid Panel unremarkable ANXIETY: * Ativan PRN anxiety. SACROILIAC DYSFUNCTION: * Tylenol/Toradol for complaints of pain. * Currently receiving injections per outside facility pain management. VAGINAL INFECTION (STAPH): * Will treat with daily rocephin dose, switch to keflex 500 mg PO BID x 7 days on discharge * Hold Bactrim in the setting of chest pain symptoms after Bactrim use with family history (mother) of Bactrim intolerance. DVT PROPHYLAXIS: * Lovenox 40 mg sq daily. * SCDs. * Ambulation as tolerated. Total Time Spent: Greater than 30 minutes This includes examination of the patient, discharge planning, medication reconciliation, and communication with other providers. Discharge Instructions Please refer to the electronic Patient Visit Report (Discharge Instructions) for additional information. Additional Copies To Cara Bynum
== END 2017-07-25 13:50 | disposition home or self-care (01) ==
LOC: C.EDB 07:49 → C.MED 10:21 → ENRESERV 10:40
PROVIDERS: ADMIT Hospitalist; ATTEND Hospitalist
DX: R07.9 Chest pain, unspecified (principal); F41.9 Anxiety disorder, unspecified; I10 Essential (primary) hypertension; E78.5 Hyperlipidemia, unspecified; Z90.710 Acquired absence of both cervix and uterus; Z82.49 Family history of ischemic heart disease and other diseases of the circulatory system; Z80.9 Family history of malignant neoplasm, unspecified

== ENCOUNTER → 2017-08-07 | Outpatient (CLI) | payer OTHER ==
[~2017-08-07] MED LIST changes: -PRED1SUS OPR; +ZNT150 PO
== END | disposition home or self-care (01) ==
LOC: C.LABSPEC 10:52
PROVIDERS: ATTEND Obstetrics & Gynecology
DX: N89.8 Other specified noninflammatory disorders of vagina (principal); N76.0 Acute vaginitis